=== PATIENT | male | born 1965 | race Caucasian/White ===

== ENCOUNTER 2018-04-01 04:49 | Inpatient (IN) ==
--- NOTE | 2018-03-21 22:45 | Anesthesiology Consultation ---
Date of Service March 21, 2018 Assessment & Plan (1) Encounter for pre-operative examination: Plan: Patient was previously seen in [facility] on 03/01/18. A new account was opened and previous one closed when patient switched insurance carriers at the start of the new year. All diagnostics have been placed in this note, but for vitals, exam, etc, please see note from 03/01/18. Chart Review Chart Review: Acceptable Risk for Surgery and Patient seen in Pre Admission Testing (Patient seen in [facility] on 03/01/18.) Consults Requested none History Surgery Operation Date: 04/01/18 07:00 Proposed Procedures p Left Total Knee Arthroplasty - Gilberto Isabel MD Height/Weight Height: 6 ft 3 in Weight: 99.79 kg Allergies Allergy/AdvReac Type Severity Reaction Status Date / Time No Known Allergies Allergy Verified 03/14/18 16:05 Medications Home Medications Medication Instructions Recorded Confirmed Last Taken No Known Home Medications 02/28/18 03/14/18 Unknown Past Medical History Medical History Osteoarthritis Past Surgical History Surgical History Hx of vasectomy WITH LOCAL ANESTHESIA Social History Smoking Status: Never smoker tobacco type: smokeless tobacco Do You Dip or Chew Tobacco: Yes (1 CAN/6DAYS (ADVISED)) Hx Alcohol Use: No Hx Substance Use: No substance use type: does not use Testing Electrocardiogram Date: 03/01/18 Findings: + NSR @ (95) Chest X-Ray Date: 03/01/18 Findings: + NAD Laboratory Results Laboratory Tests 03/01/18 03/01/18 03/01/18 12:40 12:40 12:40 WBC 7.94 Hgb 15.8 Hct 46.1 Plt Count 272 PT 10.4 INR 1.0 APTT 26.8 Sodium 137 Potassium 4.3 Chloride 103 Carbon Dioxide 29 BUN 15 Creatinine 1.02 Glucose 98 Laboratory Tests 03/01/18 12:40 Hemoglobin A1c 5.8 H Laboratory Tests 03/01/18 12:40 Urine Color Yellow Urine Appearance Clear Urine pH 7.0 Ur Specific [place] 1.013 Urine Protein Negative Urine Glucose (UA) Negative Urine Ketones Negative Urine Blood Negative Urine Nitrite Negative Urine Bilirubin Negative Urine Urobilinogen Negative Ur Leukocyte Esterase Negative
--- NOTE | 2018-03-31 18:00 | History and Physical Report ---
DATE OF ADMISSION: 04/01/2018 CHIEF COMPLAINT: Chronic left knee pain. HISTORY OF PRESENT ILLNESS: This is a 52-year-old male patient of Dr. Isabel'ronda complaining of chronic left knee pain, longstanding, now progressively getting worse. The patient has failed conservative treatment including intraarticular injections, anti-inflammatories, and the use of a sleeve. Patient has been diagnosed with end-stage osteoarthritis per clinical and radiographic exams. Patient has increased pain with weightbearing activities, and his pain does interfere with his activities of daily living. PAST MEDICAL HISTORY: Osteoarthritis, dental issues, otherwise a very healthy 52-year-old male. SOCIAL HISTORY: He does use tobacco. He is a nondrinker. PAST SURGICAL HISTORY: Negative. FAMILY HISTORY: Noncontributory. REVIEW OF SYSTEMS: Chronic left knee pain, otherwise denies any shortness of breath, chest pain, nausea, vomiting, or any other joint complaints. MEDICATIONS: No regular medications. ALLERGIES: No known drug allergies. PHYSICAL EXAMINATION: GENERAL: Well-developed, well-nourished 52-year-old male, in no acute distress. He is alert and oriented x3 and pleasant. HEENT: He is normocephalic and atraumatic. Extraocular motions are intact. Pupils are equal and reactive to light. HEART: Regular rate and rhythm, no murmurs. LUNGS: Clear. ABDOMEN: Soft, nontender, bowel sounds present. EXTREMITIES: Left knee range of motion is 0-100. He has medial joint line tenderness. He has a varus deformity. He has crepitation with passive range of motion. His ligaments are stable. He has 5/5 strength with pain. Neurologically and neurovascularly he is intact in his left lower extremity. DIAGNOSES: Left knee end-stage osteoarthritis, dental issues, otherwise healthy 52-year-old male. PLAN: Patient was advised of his diagnoses. Indications, risks, benefits, postop course have all been reviewed. Patient wished to proceed with a left total knee arthroplasty. Necessary consent forms, preoperative testing and clearances will be obtained.
[2018-04-01] MEDS ORDERED: LR 500ML BOLUS, THEN 15ML/HR IV SCH (06:00)
[2018-04-01] MEDS ORDERED: CEFAZOLIN 2000MG 2,000 MG/15 ML SYR IV SCH (06:00)
[2018-04-01] MEDS ORDERED: dexAMETHasone 4 MG TAB PO SCH (06:00)
[2018-04-01] MEDS ORDERED: ACETAMINOPHEN 500 MG TAB PO SCH (06:00)
[2018-04-01] MEDS ORDERED: ROPIVACAINE 0.5% HCL/PF 150 MG, BUPIVACAINE 0.5% MPF 30 ML, EPINEPHrine 30MG/30ML (OR U... INFIL SCH (06:00)
[2018-04-01] MEDS ORDERED: GABAPENTIN 300 MG x 3 PO SCH (06:00)
[2018-04-01] MEDS ORDERED: TRANEXAMIC ACID 1,000 MG **IV Pre-op IV SCH (06:00)
[2018-04-01] MEDS ORDERED: CeleBREX 200 MG CAP PO SCH (06:00)
[2018-04-01] MEDS ORDERED: METOCLOPRAMIDE HCL 10 MG TABLET PO SCH (06:00)
[2018-04-01] MEDS ORDERED: FAMOTIDINE 20 MG TAB PO SCH (06:00)
[2018-04-01] MEDS ORDERED: TRANEXAMIC ACID 1,000 MG **IV Intra-op IV SCH (06:30)
[2018-04-01] MEDS ORDERED: ROPIVACAINE 0.5% 5 MG/ML 30 ML VIAL ONE (06:31)
[2018-04-01] MEDS ORDERED: BUPIVACAINE 0.5 % 5 MG/1 ML PF 10ML VIAL ONE (06:31)
[2018-04-01] MEDS ORDERED: ATROPINE SULFATE 0.1 MG/ML 10ML SYR IV PRN (06:35)
[2018-04-01] MEDS ORDERED: fentaNYL citrate 100 MCG/2 ML VIAL IV PRN (06:35)
[2018-04-01] MEDS ORDERED: ONDANSETRON INJ 2 MG/ML 2 ML VIAL IV PRN ×2 (06:35→10:36)
[2018-04-01] MEDS ORDERED: ePHEDrine sulfate 50 MG/ML AMP IV PRN (06:35)
[2018-04-01] MEDS ORDERED: HYDROmorphone INJ 2 MG/ML SYR/VIAL IV PRN (06:35)
[2018-04-01] MEDS ORDERED: ORTHO JOINT ANESTHETIC ONE (06:38)
[2018-04-01] MEDS ORDERED: POVIDONE-IODINE OP SOLN 30 ML BTL ONE (06:39)
[2018-04-01] MEDS ORDERED: BACITRACIN INJ 50,000 UNIT VIAL ONE (06:39)
[2018-04-01] MEDS ORDERED: PROPOFOL IV EMULSION 10 MG/ML 20 ML VIAL IV ONE ×2 (06:50→07:58)
[2018-04-01] MEDS ORDERED: MIDAZOLAM HCL 1 MG/ML 2ML VIAL ONE (06:50)
--- NOTE | 2018-04-01 07:00 | History & Physical Bridge Note ---
Date of Service April 01, 2018 History & Physical Bridge Note I have examined the patient, reviewed the History & Physical and in the interval since the performance of the History & Physical I have noted the following changes of clinical significance: no changes noted
[2018-04-01] MEDS ORDERED: LIDOCAINE HCL 2% 2 ML VIAL/AMP(20MG/ML) INFIL ONE (07:58)
--- NOTE | 2018-04-01 08:55 | Post Operative Brief Note ---
Immediate Post Op Note v1 Date of Surgery April 01, 2018 Pre & Post Diagnosis Operation Date: 04/01/18 07:00 Pre-Op Diagnosis: Left knee end-stage osteoarthritis Post-Op Diagnosis: Left knee end-stage osteoarthritis Procedure Operation Date: 04/01/18 07:00 Actual Procedures p Left Total Knee Arthroplasty, cemented, Veliz [employer] Nephew(Left) - Gilberto Isabel MD Surgeon Gilberto Isabel MD Elementary [employer] Tutor Aaron ALBERTO Estimated Blood Loss 25 Findings Consistent with Post-Op Diagnosis Specimens Bone cuts Drains Hemovac Drain (10 LITHUANIAN DUAL) Anesthesia Type Spinal MAC Complications none Disposition Accompanied Patient To Recovery: No Disposition: Recovery Room Overlapping Procedure I was present for: the critical portions of procedure.
[2018-04-01] MEDS ORDERED: MoRPHine SULFATE 2 MG/ML CARP IV PRN (09:22)
--- NOTE | 2018-04-01 09:46 | XRay Report ---
XR knee LT 2V routine HISTORY: 52 years-old Male Surgical Post Op left knee total joint arthroplasty. History of degenerat adarsh joint disease. COMPARISON: None available TECHNIQUE: PA and lateral views of the left knee FINDINGS: Left knee total joint arthroplasty with patellar resurfacing. Alignment is satisfactory without acute fracture or retained foreign body. Expected postsurgical soft tissue swelling and deep tissue air ab out the left knee with anterior midline skin hallie and surgical drainage catheter. IMPRESSION: Left knee total joint arthroplasty and patellar resurfacing with satisfactory alignment. The above report was generated using voice recognition software. It may contain grammatical, syntax o r spelling errors. Electronically signed by: Quentin Chandler M.D. 04/01/2018 9:45 AM
--- NOTE | 2018-04-01 09:51 | Anesthesiology Progress Note ---
Date of Service April 01, 2018 Anesthesia Post Procedure Vital Signs Vital Signs: Temp Pulse Pulse Resp BP Pulse Ox 04/01/18 09:45 94 H 19 122/82 93 04/01/18 09:35 95 H 14 126/79 94 04/01/18 09:25 95 H 21 120/79 93 04/01/18 09:15 36.5 C 99 H 14 116/83 95 04/01/18 05:37 36.9 C 87 20 137/93 99 Pain Intensity Left Knee: Pain Intensity: 0 Notes Mental Status: alert / awake / arousable and participated in evaluation Patient Amnestic to Procedure: Yes Nausea / Vomiting: adequately controlled Pain: adequately controlled Airway Patency, RR, SpO2: stable & adequate BP & HR: stable & adequate Hydration State: stable & adequate Neuraxial Anesthesia: was administered and sensory block is resolving Anesthetic Complications: no major complications apparent
[2018-04-01] MEDS ORDERED: METOCLOPRAMIDE HCL INJ 5 MG/ML 2 ML VIAL IV PRN (10:36)
[2018-04-01] MEDS ORDERED: NALOXONE HCL 0.4 MG/1 ML VIAL/CARP IV PRN (10:36)
[2018-04-01] MEDS ORDERED: BISACODYL 10 MG SUPP PR PRN (10:36)
[2018-04-01] MEDS ORDERED: MAGNESIUM HYDROXIDE SUSP 30 ML UDC PO PRN (10:36)
[2018-04-01] MEDS: SODIUM CHLORIDE 0.9% 1000ML 1,000 ML IV SCH ×2 (11:21→21:22)
--- NOTE | 2018-04-01 12:42 | Operative Report ---
Post Operative Report Pre & Post Diagnosis Operation Date: 04/01/18 07:00 Pre-Op Diagnosis: Left knee end-stage osteoarthritis Post-Op Diagnosis: Left knee end-stage osteoarthritis Procedure Operation Date: 04/01/18 07:00 Actual Procedures p Left Total Knee Arthroplasty, cemented, Veliz [employer] Nephew(Left) - Gilberto Isabel MD Surgeon Gilberto Isabel MD Fresh Food Manager Aaron ALBERTO Estimated Blood Loss 25 Findings Consistent with Post-Op Diagnosis Specimens Bone cuts Drains 2 Hemovac Complications none Disposition Accompanied Patient To Recovery: No Disposition: Recovery Room Indications 52-year-old male with chronic progressive osteoarthritis left knee with tricompartmental osteoarthritis [id number] medial compartment with varus knee. Patient failed conservative management. Description of Procedure The patient was taken to the operating room and anesthetized under spinal MAC adductor nerve block. Patient was placed supine on the the operating table. A pneumatic tourniquet was placed about the left upper thigh. The knee exam demonstrated varus knee 0 through 110 degrees range of motion no instability. The involved leg was elevated exsanguinated with Esmarch bandage and the pneumatic tourniquet was raised to 350 millimeters mercury. A longitudinal incision was made across the anterior knee. Skin flaps were elevated. An incision was made into the medial retinaculum and extended up into the mid third of the quadriceps tendon and extended down to the tibial tubercle. Intra- articular findings demonstrated tricompartmental osteoarthritis grade 4 medial grade 3 all other compartments. The knee was exposed by excising cruciate ligaments and menisci. The infrapatellar fat pad was resected. The fat pad over the anterior femur at the upper aspect of the articular surface was resected for placement of the component in that area. A subperiosteal peel lateral release was performed around the patella The Veliz [employer] Nephew [employer] 2.0 total knee arthroplasty system was utilized for the procedure. The custom femoral cutting guide was pinned in position. The distal femoral cut was made. The size 8, 5 in 1 cutting block was placed. The anterior posterior and chamfer cuts were made. The knee was extended and a free hand cut technique was performed to the patella. The patella with was measured and the width was reproduced using a 35 symmetrical patella component. 3 drill holes are made for the patella component pegs. The tibia was then subluxed. The custom tibial cutting block was pinned in position and the proximal tibial cut was made with the oscillating saw. The size 7 tibial trial was externally rotated in line with the tibial tubercle and pinned in position. The punch for the stem was used. The femoral trial was inserted and centered the notch cutting devices were used and the collet was placed. Tibial trials were used for the insert. The size 10 trial gave balanced ligaments through full range of motion. Patella tracking was assessed with range of motion. The patella tracked centrally. The trials were removed. The Orthomix anesthetic cocktail was injected per protocol. The cut bone surfaces and soft tissue were copiously irrigated with antibiotic solution with bacitracin. The final components were cemented with Simplex cement. The final components were Vleiz & Nephew journey 2.0 left posterior stabilized femur, 7 primary tibial baseplate, 10 posterior stabilized poly-insert and 35 symmetrical patella. While the cement cured the Betadine soak was used per protocol. When the cement cured the knee was copiously irrigated with pulsatile lavage antibiotic solution with bacitracin. 2 drains were brought out laterally connected to Hemovac. The quadriceps tendon and medial retinaculum were closed with interrupted [id number] #1 Vicryl sutures. The knee was taken through full range of motion and repair was secure. The knee had 140 degrees flexion. The subcutaneous tissues were closed with 2-0 Vicryl sutures. The skin was closed with hallie. A sterile dressing was applied. The tourniquet was let down and the patient had good capillary refill to the extremity. The patient tolerated the procedure well. My physician certified registered dental assistant Aaron ALBERTO assisted in the procedure including prepping draping leg positioning soft tissue retraction instrument management and assisted in the closure ,dressings application and will participate in postoperative care the patient. I attest to the content of the Intraoperative Record and any orders documented therein. Any exceptions are noted below.
[2018-04-01] MEDS: OXYCODONE HCL IR 5 MG TAB (IMMEDIATE RELEASE) PO PRN ×2 (13:45→19:37)
[2018-04-01] MEDS: ACETAMINOPHEN 500 MG TAB PO SCH ×2 (13:47→21:13)
[2018-04-01] MEDS: CEFAZOLIN 2000MG 2,000 MG/15 ML SYR IV SCH (17:35)
[2018-04-01] MEDS: CeleBREX 200 MG CAP PO SCH (21:13)
[2018-04-01] MEDS: ASPIRIN 81 MG ECTAB PO SCH (21:13)
[2018-04-01] MEDS: DOCUSATE SODIUM 100 MG CAP PO SCH (21:13)
[2018-04-01 21:30] LABS: Basophils # (auto) 0.01 K/uL (0-0.2); Basophils % (auto) 0.1 %; Hematocrit (blood only) 38.2 % (42-52); Hemoglobin 13.1 g/dL (14.0-18.0); Immature Granulocytes # (auto) 0.06 K/uL (0.00-0.02); Immature Granulocytes % (auto) 0.3 %; Lymphocytes # (auto) 1.21 K/uL (1.2-3.4); Mean Corpuscular Hgb Conc 34.3 g/dL (32-36); Mean Corpuscular Volume 88.6 fL (80-100); Mean Platelet Volume 10.7 fL (7.4-10.4); Monocytes # (auto) 1.21 K/uL (0.11-0.59); Neutrophils % (auto) 85.6 %; Platelet Count 268 K/uL (130-400); RDW Coefficient of Variation 13.4 % (11.5-14.5); RDW Standard Deviation 43.4 fL (36.4-46.3); Red Blood Count 4.31 M/uL (4.7-6.1); White Blood Count 17.19 K/uL (4.8-10.8)
[2018-04-01 21:52] LABS: Calcium 8.4 mg/dl (8.5-10.1); Creatinine Clr Calc Pharmacy 80.1 ml/min; Est GFR (African American) 74.5; Est GFR (Non-African American) 64.2; Potassium 3.9 mmol/L (3.5-5.1)
[2018-04-01 23:10] LABS: Magnesium 2.1 mg/dl (1.8-2.4)
--- NOTE | 2018-04-01 23:16 | Hospitalist Consultation ---
Date of Consultation April 01, 2018 Assessment & Plan (1) Tachycardia: The patient had been noted to have heart rate up to the 120s-130s. At the time of my examination heart rate was in the low 100s. EKG showed mild sinus tachycardia at 100 bpm, with no acute ST-T changes. Chest x-ray, portable, showed no acute findings, but did show a mildly elevated right hemidiaphragm. Laboratory review revealed hemoglobin 13.7, normal BMP and magnesium level. Patient's increased heart rate to the 120s-130s was likely secondary to pain at the time, as it has resolved, and his workup is negative. I discussed with the patient that should he develop any return of symptoms, with or without chest pain, to let us know. At this time, there is no suggestion of pulmonary embolism. Continue DVT prophylaxis with SCDs. Present on Admission?: Yes (2) S/P total knee arthroplasty: Status post left total knee arthroplasty-- Management per primary team. Present on Admission?: Yes History of Present Illness Reason for Consultation: The patient was seen acutely due to call from nursing staff regarding sustained increased heart rate in the 120-130 range. Requesting Physician: Gilberto Isabel MD Attending Physician: Gilberto Isabel MD History of Present Illness The patient is a 52-year-old male with no significant past medical history, who underwent left total knee arthroplasty earlier in the day by Dr. Isabel. I received a call on the evening of April 01 that the patient had a sustained heart rate in the 120s-130 range. He had already had a CBC with differential and basic metabolic panel ordered, to which I added a magnesium level, stat EKG and had stat portable chest x-ray. At the time of my assessment, the patient was resting comfortably. He reports that he did have some pain in his left knee , was aware that his heart was beating a little faster than his baseline, but denied any chest pain, shortness of breath, lightheadedness, dizziness review of systems otherwise was negative. Allergies Allergy/AdvReac Type Severity Reaction Status Date / Time No Known Allergies Allergy Verified 04/01/18 05:47 Home Medications Home Medications Medication Instructions Recorded Confirmed Type No Known Home Medications 02/28/18 04/01/18 History Patient History Medical History Osteoarthritis Surgical History Hx of vasectomy WITH LOCAL ANESTHESIA Social History Current Living Situation: Family Other Information That Helps Us Care for You: No Feels Safe at Home: Yes Safety Concerns: Feels Safe At This Time Smoking Status: Never smoker Tobacco Type: smokeless tobacco Do You Dip or Chew Tobacco: Yes (1 CAN/6DAYS (ADVISED)) Hx Alcohol Use: No Hx Substance Use: No Beliefs That Will Affect Care: None Preferred Language: Swazi Communication Ability: Effective Field Services Director Required: No Review of Systems The patient denies chest pain, shortness of breath, fevers, chills, sweats, weight change, fatigue, nausea, vomiting, diarrhea , constipation, abdominal pain, pelvic pain, blood in urine or stool, dysuria, urinary frequency or urgency, lightheadedness, dizziness, headache, memory loss, loss of consciousness, rash, generalized weakness, numbness or tingling in arms, generalized arthralgias or myalgias, back or neck pain, or night sweats. The review of systems is otherwise negative other than for that already noted above, and at least 10 systems have been reviewed. Physical Exam 2 Vital Signs (Past 24 Hours): Last Vital Signs Temp 36.9 C 04/01/18 19:20 Pulse 111 H 04/01/18 20:20 Resp 16 04/01/18 19:20 BP 128/74 04/01/18 20:20 Pulse Ox 95 04/01/18 19:20 Physical Exam: The patient is awake, alert and oriented 3, well developed and well nourished, normocephalic and atraumatic, lying in bed and in no acute distress. HEENT--PERRL, EOMI, mucous membranes and oropharynx dry. Neck--supple. No JVD. No bruits. Thyroid normal, trachea midline, no adenopathy. Heart--normal S1 and S2. No murmurs, rubs or gallops. Lungs--clear bilaterally, no respiratory distress, no accessory muscle use. Abdomen--normal bowel sounds and soft. Nontender. Nondistended, no hernias or masses, no organomegaly. Extremities--no cyanosis or clubbing. No edema. There are good distal pulses b/ l. Dermatologic--normal skin turgor, normal color, no abnormal lymph nodes, no rash. Neurologic--cranial nerves II through XII grossly intact. Rheumatologic--left knee with usual postoperative exam Psychiatric--normal affect. Results & Data Laboratory Results Laboratory Results WBC 17.19 K/uL (4.8-10.8) H 04/01/18 20:59 RBC 4.31 M/uL (4.7-6.1) L 04/01/18 20:59 Hgb 13.1 g/dL (14.0-18.0) L 04/01/18 20:59 Hct 38.2 % (42-52) L 04/01/18 20:59 MCV 88.6 fL (80-100) 04/01/18 20:59 MCH 30.4 pg (25-34) 04/01/18 20:59 MCHC 34.3 g/dL (32-36) 04/01/18 20:59 RDW Std Deviation 43.4 fL (36.4-46.3) 04/01/18 20:59 RDW Coeff of Randall 13.4 % (11.5-14.5) 04/01/18 20:59 Plt Count 268 K/uL (130-400) 04/01/18 20:59 MPV 10.7 fL (7.4-10.4) H 04/01/18 20:59 Immature Gran % (Auto) 0.3 % 04/01/18 20:59 Neut % (Auto) 85.6 % 04/01/18 20:59 Lymph % (Auto) 7.0 % 04/01/18 20:59 Caswell % (Auto) 7.0 % 04/01/18 20:59 Eos % (Auto) 0.0 % 04/01/18 20:59 Baso % (Auto) 0.1 % 04/01/18 20:59 Immature Gran # (Auto) 0.06 K/uL (0.00-0.02) H 04/01/18 20:59 Neut # (Auto) 14.70 K/uL (1.4-6.5) H 04/01/18 20:59 Lymph # (Auto) 1.21 K/uL (1.2-3.4) 04/01/18 20:59 Caswell # (Auto) 1.21 K/uL (0.11-0.59) H 04/01/18 20:59 Eos # (Auto) 0.00 K/uL (0-0.5) 04/01/18 20:59 Baso # (Auto) 0.01 K/uL (0-0.2) 04/01/18 20:59 Sodium 134 mmol/L (136-145) L 04/01/18 20:59 Potassium 3.9 mmol/L (3.5-5.1) 04/01/18 20:59 Chloride 104 mmol/L (98-107) 04/01/18 20:59 Carbon Dioxide 20 mmol/L (21-32) L 04/01/18 20:59 Anion Gap 10.0 (3-11) 04/01/18 20:59 BUN 20 mg/dl (7-18) H 04/01/18 20:59 Creatinine 1.26 mg/dl (0.6-1.4) 04/01/18 20:59 Est Cr Clr Drug Dosing 80.1 ml/min 04/01/18 20:59 Est GFR ( Amer) 74.5 04/01/18 20:59 Est GFR (Non-Af Amer) 64.2 04/01/18 20:59 BUN/Creatinine Ratio 16.0 (10-20) 04/01/18 20:59 Glucose 187 mg/dl (70-99) H 04/01/18 20:59 Calcium 8.4 mg/dl (8.5-10.1) L 04/01/18 20:59 Magnesium 2.1 mg/dl (1.8-2.4) 04/01/18 20:59
[2018-04-02] MEDS: CEFAZOLIN 2000MG 2,000 MG/15 ML SYR IV SCH (01:17)
[2018-04-02] MEDS: ACETAMINOPHEN 500 MG TAB PO SCH ×3 (05:31→21:17)
[2018-04-02 06:12] LABS: Hematocrit (blood only) 37.5 % (42-52); Hemoglobin 12.6 g/dL (14.0-18.0); Mean Corpuscular Hgb Conc 33.6 g/dL (32-36); Mean Corpuscular Volume 89.3 fL (80-100); Mean Platelet Volume 10.8 fL (7.4-10.4); Platelet Count 267 K/uL (130-400); RDW Coefficient of Variation 13.6 % (11.5-14.5); RDW Standard Deviation 44.3 fL (36.4-46.3); White Blood Count 16.63 K/uL (4.8-10.8)
--- NOTE | 2018-04-02 06:33 | XRay Report ---
XR chest 1V portable HISTORY: 52 years-old Male tachypnea, tachycardia acute tachycardia COMPARISON: Chest radiographs 03/01/2018 TECHNIQUE: Portable AP view of the chest FINDINGS: Cardiomediastinal and hilar silhouettes are within normal limits. Mild right hemidiaphragmatic elevat ion. There is no pneumothorax, pleural effusion, focal airspace consolidation or overt pulmonary reji a. Bones of the chest appear grossly intact. IMPRESSION: No acute process. The above report was generated using voice recognition software. It may contain grammatical, syntax o r spelling errors. Electronically signed by: Quentin Chandler M.D. 04/02/2018 6:32 AM
[2018-04-02 06:37] LABS: BUN Creatinine Ratio 16.5 (10-20); Calcium 8.5 mg/dl (8.5-10.1); Creatinine Clr Calc Pharmacy 92.6 ml/min; Est GFR (African American) 88.7; Est GFR (Non-African American) 76.5; Potassium 4.1 mmol/L (3.5-5.1)
--- NOTE | 2018-04-02 07:46 | Orthopedic Progress Note ---
Date of Service April 02, 2018 Assessment & Plan (1) S/P total knee arthroplasty: POD #1, Left TKA DVT proph- ASA D/C planning- Home w OPPT PT/ OT Appreciate medicine input. Patient seen and examined, agree with above assessment and plan. Subjective POD #1, Doing well this AM. Had post op tachycardia, EKG was sinus tach, otherwise normal, CXR normal, medical consult on board to monitor, likely due to pain. Denies SOB, CP, N/V, pain controled well at this point. Physical Exam 2 Vital Signs (Past 24 Hours): Last Vital Signs Temp 36.4 C L 04/02/18 06:49 Pulse 97 H 04/02/18 06:49 Resp 18 04/02/18 06:49 BP 144/84 H 04/02/18 06:49 Pulse Ox 98 04/02/18 06:49 Physical Exam: Left knee dressings c/d/i, no drainage, drain in place, toes and ankle mobile, no calf tenderness. A&O x3.
--- NOTE | 2018-04-02 08:08 | Anesthesiology Progress Note ---
Date of Service April 02, 2018 Anesthesia Post Procedure Vital Signs Vital Signs: Temp Pulse Pulse Pulse Resp BP Pulse Ox 04/02/18 06:49 36.4 C L 97 H 18 144/84 H 98 04/02/18 03:08 36.6 C 85 17 125/78 96 04/01/18 23:42 36.9 C 94 H 18 132/75 96 04/01/18 20:20 111 H 128/74 04/01/18 19:20 36.9 C 117 H 16 123/68 95 04/01/18 15:48 36.8 C 102 H 16 127/84 95 04/01/18 13:13 90 18 112/76 96 04/01/18 12:06 101 H 18 128/71 96 04/01/18 11:07 95 H 18 124/80 98 04/01/18 10:43 94 H 18 121/85 96 04/01/18 10:10 36.7 C 52 L 18 143/74 H 04/01/18 09:55 91 H 19 119/79 94 04/01/18 09:45 94 H 19 122/82 93 04/01/18 09:35 95 H 14 126/79 94 04/01/18 09:25 95 H 21 120/79 93 04/01/18 09:15 36.5 C 99 H 14 116/83 95 Pain Intensity Left Knee: Pain Intensity: 4 Notes Mental Status: alert / awake / arousable and participated in evaluation Patient Amnestic to Procedure: Yes Nausea / Vomiting: adequately controlled Pain: adequately controlled Airway Patency, RR, SpO2: stable & adequate BP & HR: stable & adequate Hydration State: stable & adequate Neuraxial Anesthesia: was administered and sensory block resolved Anesthetic Complications: no major complications apparent
[2018-04-02] MEDS: OXYCODONE HCL IR 5 MG TAB (IMMEDIATE RELEASE) PO PRN ×2 (08:17→12:35)
[2018-04-02] MEDS: MULTIVITAMIN TAB PO SCH (08:18)
[2018-04-02] MEDS: ASPIRIN 81 MG ECTAB PO SCH ×2 (08:19→21:17)
[2018-04-02] MEDS: DOCUSATE SODIUM 100 MG CAP PO SCH ×2 (08:19→21:17)
[2018-04-02] MEDS: CeleBREX 200 MG CAP PO SCH ×2 (08:19→21:17)
--- NOTE | 2018-04-02 12:03 | Hospitalist Progress Note ---
Date of Service April 02, 2018 Assessment & Plan (1) Tachycardia: - Appears to be resolved at this time - initially noted to be sustained at 120-130s which appeared to be some sinus tach - No ischemic changes noted on EKGs obtained; CXR unremarkable; Labs remain unremarkable - Likely a physiological response to pain; clinically not supportive of PE - No further intervention warranted at this time Hospitalists service will sign off at this time. Do not hesitate to call us for any change in clinical status. Present on Admission?: Yes (2) S/P total knee arthroplasty: - L knee - management per primary team Present on Admission?: Yes Subjective Patient reports feeling well today. HRs are better today. He denies any chest pain or SOB. Doesn't have any known underlying heart issues States he did have more pain last night so could be the cause. Labs are unremarkable and imaging/EKG without acute findings. He anticipates returning home tomorrow Constitutional: no fever, no chills and no fatigue Eyes: no worsening vision Ear, Nose, Mouth, Throat: no dry mouth and no sore throat Respiratory: no cough, no dyspnea and no dyspnea on exertion Cardiovascular: no chest pain, no lightheadedness, no edema and no calf pain Gastrointestinal: no abdominal pain, no nausea, no vomiting, no constipation and no diarrhea/loose stools Genitourinary (Male): no dysuria Musculoskeletal: + joint pain (L knee) Integumentary: no rash Physical Exam 2 Vital Signs (Past 24 Hours): Last Vital Signs Temp 36.8 C 04/02/18 10:49 Pulse 93 H 04/02/18 10:49 Resp 18 04/02/18 10:49 BP 120/75 04/02/18 10:49 Pulse Ox 99 04/02/18 10:49 Constitutional: WD/WN, vitals as above Eyes: + anicteric sclerae ENMT: Throat: uvula midline; no posterior oropharynx abnormality Neck: trachea midline Respiratory: normal respiratory effort, lungs clear to auscultation Cardiovascular: Rate/Rhythm: regular rate and regular rhythm Heart Sounds: no gallop, no murmur and no cardiac rub Gastrointestinal (Abdomen): Inspection/Auscultation: normal bowel sounds Percussion/Palpation: abdomen soft; abdomen nontender Musculoskeletal: Head/Neck/Chest: normocephalic, head atraumatic and neck supple Skin: no rashes, warm and dry Neurologic: moves all extremities Psychiatric: A+Ox3, euthymic affect
[2018-04-02] MEDS: TRAMADOL HCL 50 MG TABLET PO PRN ×2 (13:27→19:01)
[2018-04-03] MEDS: ACETAMINOPHEN 500 MG TAB PO SCH ×2 (05:42→14:06)
[2018-04-03 05:58] LABS: Hematocrit (blood only) 34.5 % (42-52); Hemoglobin 11.4 g/dL (14.0-18.0); Mean Corpuscular Volume 89.6 fL (80-100); Mean Platelet Volume 10.6 fL (7.4-10.4); Platelet Count 242 K/uL (130-400); Red Blood Count 3.85 M/uL (4.7-6.1); White Blood Count 10.42 K/uL (4.8-10.8)
[2018-04-03 06:24] LABS: BUN Creatinine Ratio 14.8 (10-20); Calcium 8.5 mg/dl (8.5-10.1); Creatinine Clr Calc Pharmacy 90.9 ml/min; Est GFR (African American) 86.8; Est GFR (Non-African American) 74.9; Potassium 4.2 mmol/L (3.5-5.1)
--- NOTE | 2018-04-03 06:58 | Orthopedic Progress Note ---
Date of Service April 03, 2018 Assessment & Plan (1) S/P total knee arthroplasty: POD #2, Left TKA DVT proph- ASA D/C planning- Home w OPPT today PT/ OT Appreciate medicine input- they have signed off as medically stable. Subjective POD #2, Doing well this AM. Had post op tachycardia, EKG was sinus tach, otherwise normal, CXR normal, medical consult on board to monitor, likely due to pain. Denies SOB, CP, N/V, pain controlled well at this point. Pulse 95 this AM. Physical Exam 2 Vital Signs (Past 24 Hours): Last Vital Signs Temp 36.8 C 04/03/18 06:25 Pulse 95 H 04/03/18 06:25 Resp 16 04/03/18 06:25 BP 157/83 H 04/03/18 06:25 Pulse Ox 97 04/03/18 06:25 Physical Exam: LEft knee incision c/d/i, no erythema, no drainage, no calf tenderness, toes and ankle mobile, A&Ox3.
[2018-04-03] MEDS: OXYCODONE HCL IR 5 MG TAB (IMMEDIATE RELEASE) PO PRN ×2 (07:42→14:05)
[2018-04-03] MEDS: CeleBREX 200 MG CAP PO SCH (07:43)
[2018-04-03] MEDS: ASPIRIN 81 MG ECTAB PO SCH (07:44)
[2018-04-03] MEDS: DOCUSATE SODIUM 100 MG CAP PO SCH (07:45)
[2018-04-03] MEDS: MULTIVITAMIN TAB PO SCH (07:45)
[2018-04-03] MEDS: TRAMADOL HCL 50 MG TABLET PO PRN (10:11)
--- NOTE | 2018-04-16 22:24 | Discharge Summary ---
This is a 52-year-old male patient of Dr. Isabel'ronda complaining of chronic left knee pain, longstanding, progressively getting worse. The patient failed conservative treatment and elected to proceed with a left total knee arthroplasty. PAST MEDICAL HISTORY: Osteoarthritis, dental issues, otherwise a very healthy 52-year-old male. POSTOPERATIVE COURSE: The patient underwent a left total knee arthroplasty on 04/01/2018. He was followed closely with medical consultation, DVT prophylaxis in the form of aspirin, physical therapy and pain control. He did have a run of sinus tachycardia postoperatively. EKG was sinus tachy with no ischemia. This did resolve. Chest x-ray was negative. The patient was asymptomatic. This was due to operative stress and pain. He was cleared medically. Otherwise, an uneventful postoperative course. PHYSICAL EXAMINATION: On discharge, left knee dressings were clean, dry, and intact. There was no redness or drainage. He had no calf tenderness. Negative Homans sign. Neurologically and neurovascularly he is intact in his left lower extremity. DIAGNOSIS: Status post left total knee arthroplasty. He has a history of dental issues. Otherwise, a healthy 52-year-old male. PLAN: The patient was discharged home with outpatient physical therapy on postoperative day #2. He will continue his preadmission medications with the addition of pain medication and aspirin twice daily for DVT prophylaxis. He will follow up as an outpatient as scheduled.
== END 2018-04-03 15:04 | disposition home or self-care (01) | DRG 470 ==
LOC: ASU 04:49 → 3E 09:21
DX: M17.12 Unilateral primary osteoarthritis, left knee; R00.0 Tachycardia, unspecified; F17.220 Nicotine dependence, chewing tobacco, uncomplicated